=== PATIENT | female | born 1960 | race American Indian/Alaskan Native ===

== ENCOUNTER 2018-04-19 02:28 | Inpatient (IN) | payer OTHER ==
[2018-04-19] MEDS ORDERED: TORADOL IV ONE ×2 (02:43→02:48)
[2018-04-19] MEDS ORDERED: DILAUDID IV ONE ×4 (02:47→06:51)
--- NOTE | 2018-04-19 03:48 | Emergency Department Report ---
<ROSEMARY GRAVES - Last Filed: 04/19/18 03:45> ED Extremity Problem HPI - General Chief complaint: Extremity Injury, Lower Stated complaint: KNEE INJURY Time Seen by Provider: 04/19/18 02:39 Source: EMS Mode of arrival: Stretcher Limitations: No Limitations - History of Present Illness Initial comments: Patient is a 57-year-old female who is presenting status post fall. Patient states that the floor at home in the bathroom had some water on it and she slipped and fell. Patient is a history of being morbidly obese. Patient was unable to get herself off the ground. Patient was having intense pain in the left knee and thigh. Patient states pain is 10 out of 10 in severity. Patient denies any head injury or loss of consciousness. Severity scale (0 -10): 10 - Related Data Allergies Allergy/AdvReac Type Severity Reaction Status Date / Time ciprofloxacin [From Cipro] Allergy Hives Verified 04/19/18 02:46 tramadol Allergy Hives Verified 04/19/18 02:46 ED Review of Systems Comment: All other systems reviewed and negative ED Past Medical Hx - Past Medical History Hx Hypertension: Yes - Surgical History Past Surgical History?: Yes Additional Surgical History: right hip replacement, right knee, left wrist s/p - Social History Smoking Status: Never Smoker Substance Use Type: None ED Physical Exam - General Limitations: No Limitations General appearance: alert, in distress (secondary to pain) - Head Head exam: Present: atraumatic, normocephalic - Eye Eye exam: Present: normal appearance - ENT ENT exam: Present: mucous membranes moist - Neck Neck exam: Present: normal inspection - Respiratory Respiratory exam: Present: normal lung sounds bilaterally. Absent: respiratory distress, wheezes, rales, rhonchi - Cardiovascular Cardiovascular Exam: Present: regular rate, normal rhythm. Absent: systolic murmur, diastolic murmur, rubs, gallop - GI/Abdominal GI/Abdominal exam: Present: soft, normal bowel sounds. Absent: distended, tenderness, guarding, rebound - Extremities Exam Extremities exam: Present: normal inspection, tenderness (the left eye and left knee. Patient's left lower extremity is shortened. She has no tenderness to palpation to the left hip.) - Back Exam Back exam: Present: normal inspection - Neurological Exam Neurological exam: Present: alert, oriented X3 - Psychiatric Psychiatric exam: Present: normal affect, normal mood - Skin Skin exam: Present: warm, dry, intact, normal color. Absent: rash ED Disposition Clinical Impression: Left femoral shaft fracture Qualifiers: Encounter type: initial encounter Fracture type: closed Fracture morphology: oblique Fracture alignment: displaced Qualified Code(s): S72.332A - Displaced oblique fracture of shaft of left femur, initial encounter for closed fracture Disposition: OP ADMIT IP TO THIS HOSP Condition: Stable Referrals: PRIMARY CARE, [Primary Care Provider] - 3-5 Days <CODY CARTWRIGHT - Last Filed: 04/19/18 07:55> ED Review of Systems ROS: Stated complaint: KNEE INJURY Other details as noted in HPI ED Course Vital Signs 04/19/18 04/19/18 04/19/18 02:36 02:37 02:46 Temperature 99.1 F Pulse Rate 91 H 91 H 86 Respiratory 16 11 L 16 Rate Blood Pressure 158/83 158/83 Blood Pressure 158/83 [Left] O2 Sat by Pulse 99 99 Oximetry 04/19/18 04/19/18 04/19/18 03:00 03:16 03:30 Temperature Pulse Rate 95 H 95 H 79 Respiratory 21 21 14 Rate Blood Pressure 158/83 158/83 131/76 Blood Pressure [Left] O2 Sat by Pulse 99 99 100 Oximetry 04/19/18 04/19/18 04/19/18 03:46 04:00 04:16 Temperature Pulse Rate 79 76 78 Respiratory 13 12 11 L Rate Blood Pressure 131/76 143/71 143/71 Blood Pressure [Left] O2 Sat by Pulse 97 95 93 Oximetry 04/19/18 04/19/18 04/19/18 04:30 04:46 05:00 Temperature Pulse Rate 78 79 82 Respiratory 10 L 15 15 Rate Blood Pressure 154/63 154/63 131/63 Blood Pressure [Left] O2 Sat by Pulse 94 98 96 Oximetry 04/19/18 04/19/18 04/19/18 05:16 05:58 06:00 Temperature Pulse Rate 81 77 Respiratory 14 16 13 Rate Blood Pressure 131/63 158/75 Blood Pressure [Left] O2 Sat by Pulse 95 100 Oximetry 04/19/18 07:00 Temperature Pulse Rate 85 Respiratory 12 Rate Blood Pressure 141/64 Blood Pressure [Left] O2 Sat by Pulse 98 Oximetry - Reevaluation(s) Reevaluation #1: Patient was seen and examined. She had a mechanical fall slipping on water. She complains of both her knees hurting but essentially distal femur pain secondary to a displaced oblique fracture. I ordered additional preop workup. On examination the patient is hemodynamically stable. He was given an additional milligram of Dilaudid to facilitate a pelvic x-ray. She's had a previous hip replacement but no additional fracture was seen. The leg appears to be neurovascularly intact. There are pulses present. Both feet are cool. The case was discussed with Dr. Gama who stated that he would likely operate today. The patient will be admitted to the hospitalist service by Dr. Farfan. 04/19/18 07:53 04/19/18 07:54 ED Medical Decision Making - Lab Data Result diagrams: 04/19/18 03:31 04/19/18 03:31 Critical care attestation.: If time is entered above; I have spent that time in minutes in the direct care of this critically ill patient, excluding procedure time. ED Disposition Is pt being admited?: Yes Does the pt Need Aspirin: No Time of Disposition: 07:55
[2018-04-19 03:49] LABS: Basophils % (Auto) 0.6 % (0.0-1.8); Eosinophils # (Auto) 0.1 K/mm3 (0.0-0.4); Eosinophils % (Auto) 0.7 % (0.0-4.3); Hematocrit 35.1 % (30.3-42.9); Hemoglobin 11.9 gm/dl (10.1-14.3); Lymphocytes # (Auto) 1.4 K/mm3 (1.2-5.4); Lymphocytes % (Auto) 16.9 % (13.4-35.0); Mean Corpuscular HGB Conc 34 % (30-34); Mean Corpuscular Volume 91 fl (79-97); Monocytes # (Auto) 0.5 K/mm3 (0.0-0.8); Monocytes % (Auto) 5.8 % (0.0-7.3); Platelet Count 271 K/mm3 (140-440); Red Blood Count 3.87 M/mm3 (3.65-5.03); Red Cell Distribution Width 14.8 % (13.2-15.2)
--- NOTE | 2018-04-19 03:59 | XRay Report ---
FINAL REPORT PROCEDURE: XR FEMUR 1V LT TECHNIQUE: LEFT femur radiographs, AP and lateral views. HISTORY: fall COMPARISON: No prior studies are available for comparison. FINDINGS: Fracture (s) and/or Dislocation(s): There is a oblique fractures in the midshaft of the left femur. T he distal fragment is laterally displaced. There is slight overlap of the fragments by approximately 5 centimeters.. Joint space(s): Normal . Soft tissues: Normal . Bone mineralization: Normal . Foreign bodies: None . IMPRESSION: Displaced oblique fracture through the midshaft of the left femur.
[2018-04-19 04:01] LABS: BUN/Creatinine Ratio 29; Blood Urea Nitrogen 20 mg/dL (7-17); Calcium 8.8 mg/dL (8.4-10.2); Hemolysis Index 8
--- NOTE | 2018-04-19 04:01 | XRay Report ---
FINAL REPORT PROCEDURE: XR KNEE 1-2V LT TECHNIQUE: LEFT knee radiographs, AP and lateral views. CPT 19635 HISTORY: fall COMPARISON: No prior studies are available for comparison. FINDINGS: Fracture (s) and/or Dislocation(s): There is an oblique displaced fracture through the midshaft of th e left femur. The remaining osseous structures appear intact. There is been some osseous remodeling o f the proximal fibula, this appears to be previous trauma.. Alignment: Normal . Joint space(s): Moderate narrowing of the joint spaces. Soft tissues: Normal . Bone mineralization: Normal . Foreign bodies: None . IMPRESSION: There is an oblique displaced fracture through the midshaft of the left femur. Moderate arthritis at the knee..
--- NOTE | 2018-04-19 04:02 | XRay Report ---
FINAL REPORT PROCEDURE: XR KNEE 1-2V RT TECHNIQUE: RIGHT knee radiographs, AP and lateral views. CPT 23854 HISTORY: fall COMPARISON: No prior studies are available for comparison. FINDINGS: Fracture (s) and/or Dislocation(s): No evidence of an acute fracture. There is been previous osseous remodeling of the proximal fibula and tibia, this most likely from previous trauma. There has been pr evious internal fixation at the proximal tibia with 2 screws traversing this region.. Alignment: Normal . Joint space(s): Moderate narrowing of the joint spaces.. Soft tissues: Moderate soft tissue swelling over the anterior knee. Bone mineralization: Normal . Foreign bodies: None . IMPRESSION: No evidence of an acute fracture. Previous trauma to the proximal tibia and fibula. Moderate arthriti s. Moderate soft tissue swelling over the anterior knee.
[2018-04-19] MEDS ORDERED: NACL 0.9% 1000 ML 1,000 ML IV ONE (06:18)
[2018-04-19 07:01] LABS: Alanine Aminotransferase 10 units/L (7-56); Albumin 3.7 g/dL (3.9-5)
[2018-04-19 07:05] LABS: Bilirubin,Direct < 0.2 mg/dL (0-0.2)
--- NOTE | 2018-04-19 07:15 | XRay Report ---
FINAL REPORT EXAM: XR CHEST 1V AP HISTORY: hypertension TECHNIQUE: AP portable view(s) of the chest obtained. PRIORS: None. FINDINGS: No mediastinal shift. Cardiac silhouette is not enlarged. No pneumothorax, effusion, or focal pulmona ry opacity identified. No acute skeletal findings. IMPRESSION: No acute pulmonary finding identified.
--- NOTE | 2018-04-19 07:16 | XRay Report ---
FINAL REPORT EXAM: XR PELVIS 1-2V HISTORY: trauma pain COMPARISONS: None. FINDINGS: Two portable views of the pelvis No displaced fracture identified. Right hip arthroplasty is partially imaged and appears intact. Mild left hip osteoarthropathy. IMPRESSION: No displaced pelvic or proximal femur fracture identified. Consider additional imaging for worsening/ persistent symptoms.
[2018-04-19 07:22] LABS: INR 0.99 (0.87-1.13)
[2018-04-19 07:23] LABS: Partial Thromboplastin Time 23.3 Sec. (24.2-36.6)
[2018-04-19] MEDS ORDERED: ZOFRAN IV PRN (07:56)
[2018-04-19] MEDS ORDERED: NON-FORMULARY (Gabapentin [Neurontin] 600 MG) PO SCH (08:45)
[2018-04-19] MEDS ORDERED: NARCAN 0.4 MG/1 ML IV PRN (08:46)
[2018-04-19] MEDS ORDERED: TYLENOL PO PRN (08:46)
[2018-04-19] MEDS ORDERED: SODIUM CHLORIDE FLUSH SYRINGE 10 ML IV PRN (08:46)
--- NOTE | 2018-04-19 08:50 | History and Physical Report ---
History of Present Illness Date of examination: 04/19/18 Date of admission: 04/19/18 07:57 Chief complaint: 04/19/18 History of present illness: Patient is a 57-year-old female who presents to the ED following a mechanical fall while getting out of the bathroom. The patient reports that she slipped on the water on the bathroom floor and fell. She'll fortunately was unable to get up being morbidly obese and was on this she thickened left knee and thigh pain rated at 10 over 10 in severity with no aggravating or alleviating symptoms. She does have medical history significant for right hip and knee surgeries in the past, left wrist surgery. Total hysterectomy. Hypertension, morbid obesity for which she is on phentermine. 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 Arrival to the ER she has received multiple pain medications with very moderate relief. As of the chest pain nausea vomiting she denies any head trauma. She denies any loss of consciousness during this fall. Past History Past Medical History: arthritis, hypertension, hyperlipidemia, other (Malignant Hyperthermia with previous surgery, ) Past Surgical History: hysterectomy, total hip replacement (right), total knee replacement (right), Other (left wrist surgery with metalic plate, total hysterectomy) Social history: lives with family Family history: no significant family history Medications and Allergies Allergies Allergy/AdvReac Type Severity Reaction Status Date / Time ciprofloxacin [From Cipro] Allergy Hives Verified 04/19/18 02:46 tramadol Allergy Hives Verified 04/19/18 02:46 Home Medications Medication Instructions Recorded Confirmed Last Taken Type Diclofenac Sodium [Diclo Gel] 1 each TP BID 04/19/18 04/19/18 Unknown History Gabapentin [Neurontin] 600 mg PO Q8H 04/19/18 04/19/18 Unknown History Ibuprofen [Motrin] 800 mg PO Q8HR PRN 04/19/18 04/19/18 Unknown History Losartan Potassium 25 mg PO QDAY 04/19/18 04/19/18 Unknown History Phentermine HCl 37.5 mg PO QDAY 04/19/18 04/19/18 Unknown History hydroCHLOROthiazide [HCTZ] 25 mg PO QDAY 04/19/18 04/19/18 Unknown History Active Meds: Active Medications Hydrochlorothiazide (Hctz) 25 mg PO QDAY KENYA Hydromorphone HCl (Dilaudid) 0.5 mg IV Q2H PRN PRN Reason: pain Isosorbide Mononitrate (Imdur) 30 mg PO QDAY [facility] Miscellaneous Medication (Diclofenac Sodium [Diclo Gel]) 1 each TP BID [facility] Miscellaneous Medication (Gabapentin [Neurontin]) 600 mg PO Q8H [facility] Ondansetron HCl (Zofran) 4 mg IV ONCE PRN PRN Reason: nausea Ondansetron HCl (Zofran) 4 mg IV Q8H PRN PRN Reason: Nausea And Vomiting Review of Systems All systems: negative Constitutional: weakness, other (generalized pain) Cardiovascular: no chest pain, no palpitations, no rapid/irregular heart beat, no syncope, no shortness of breath Respiratory: no cough Gastrointestinal: no abdominal pain Musculoskeletal: fractures (left femur) Exam - Physical Exam Narrative exam: VITAL SIGNS: Reviewed. GENERAL: The patient appeared well nourished and normally developed. Vital signs as documented. Otherwise morbidly obese HEAD: No signs of head trauma. EYES: Pupils are equal. Extraocular motions intact. EARS: Hearing grossly intact. MOUTH: Oropharynx is normal. NECK: No adenopathy, no JVD. CHEST: Chest with clear breath sounds bilaterally. No wheezes, rales, or rhonchi. CARDIAC: Regular rate and rhythm. S1 and S2, without murmurs, gallops, or rubs. VASCULAR: No Edema. Peripheral pulses normal and equal in all extremities. ABDOMEN: Soft, without detectable tenderness. No sign of distention. No rebound or guarding, and no masses palpated. Bowel Sounds normal. MUSCULOSKELETAL: Limited range of motion left lower extremity which is shortened and externally rotated. . Extremities without clubbing, cyanosis or edema. NEUROLOGIC EXAM: Alert and oriented x 3. No focal sensory or strength deficits. Speech normal. Follows commands. PSYCHIATRIC: Mood normal. SKIN: No rash or lesions. Except for surgical well-healed incisions right knee right hip left wrist - Constitutional Vitals: Temp Pulse Resp BP Pulse Ox 99.1 F 85 12 141/64 98 04/19/18 02:36 04/19/18 07:00 04/19/18 07:00 04/19/18 07:00 04/19/18 07:00 Results - Labs CBC & Chem 7: 04/19/18 03:31 04/19/18 03:31 Labs: Laboratory Last Values WBC 8.3 K/mm3 (4.5-11.0) 04/19/18 03:31 RBC 3.87 M/mm3 (3.65-5.03) 04/19/18 03:31 Hgb 11.9 gm/dl (10.1-14.3) 04/19/18 03:31 Hct 35.1 % (30.3-42.9) 04/19/18 03:31 MCV 91 fl (79-97) 04/19/18 03:31 MCH 31 pg (28-32) 04/19/18 03:31 MCHC 34 % (30-34) 04/19/18 03:31 RDW 14.8 % (13.2-15.2) 04/19/18 03:31 Plt Count 271 K/mm3 (140-440) 04/19/18 03:31 Lymph % (Auto) 16.9 % (13.4-35.0) 04/19/18 03:31 [place] % (Auto) 5.8 % (0.0-7.3) 04/19/18 03:31 Eos % (Auto) 0.7 % (0.0-4.3) 04/19/18 03:31 Baso % (Auto) 0.6 % (0.0-1.8) 04/19/18 03:31 Lymph # 1.4 K/mm3 (1.2-5.4) 04/19/18 03:31 [place] # 0.5 K/mm3 (0.0-0.8) 04/19/18 03:31 Eos # 0.1 K/mm3 (0.0-0.4) 04/19/18 03:31 Baso # 0.0 K/mm3 (0.0-0.1) 04/19/18 03:31 Seg Neutrophils % 76.0 % (40.0-70.0) H 04/19/18 03:31 Seg Neutrophils # 6.3 K/mm3 (1.8-7.7) 04/19/18 03:31 PT 13.5 Sec. (12.2-14.9) 04/19/18 06:27 INR 0.99 (0.87-1.13) 04/19/18 06:27 APTT 23.3 Sec. (24.2-36.6) L 04/19/18 06:27 Sodium 137 mmol/L (137-145) 04/19/18 03:31 Potassium 3.5 mmol/L (3.6-5.0) L 04/19/18 03:31 Chloride 98.5 mmol/L (98-107) 04/19/18 03:31 Carbon Dioxide 25 mmol/L (22-30) 04/19/18 03:31 Anion Gap 17 mmol/L 04/19/18 03:31 BUN 20 mg/dL (7-17) H 04/19/18 03:31 Creatinine 0.7 mg/dL (0.7-1.2) 04/19/18 03:31 Estimated GFR > 60 ml/min 04/19/18 03:31 BUN/Creatinine Ratio 29 % 04/19/18 03:31 Glucose 113 mg/dL (65-100) H 04/19/18 03:31 Calcium 8.8 mg/dL (8.4-10.2) 04/19/18 03:31 Magnesium 1.80 mg/dL (1.7-2.3) 04/19/18 06:27 Total Bilirubin 0.30 mg/dL (0.1-1.2) 04/19/18 06:27 Direct Bilirubin < 0.2 mg/dL (0-0.2) 04/19/18 06:27 Indirect Bilirubin 0.1 mg/dL 04/19/18 06:27 AST 13 units/L (5-40) 04/19/18 06:27 ALT 10 units/L (7-56) 04/19/18 06:27 Alkaline Phosphatase 100 units/L (35-129) 04/19/18 06:27 Troponin T < 0.010 ng/mL (0.00-0.029) 04/19/18 06:27 NT-Pro-B Natriuret Pep 136.5 pg/mL (0-900) 04/19/18 06:27 Total Protein 7.3 g/dL (6.3-8.2) 04/19/18 06:27 Albumin 3.7 g/dL (3.9-5) L 04/19/18 06:27 Albumin/Globulin Ratio 1.0 % 04/19/18 06:27 Blood Type B POSITIVE 04/19/18 06:27 Antibody Screen Negative 04/19/18 06:27 - Imaging and Cardiology Imaging and Cardiology: Imaging study of lower extremities shows a displaced oblique fracture through the mid shaft of the left femur Assessment and Plan Assessment and plan: Patient is a 57-year-old female who presents to the ED following a mechanical fall while getting out of the bathroom. The patient reports that she slipped on the water on the bathroom floor and fell. She'll fortunately was unable to get up being morbidly obese and was on this she thickened left knee and thigh pain rated at 10 over 10 in severity with no aggravating or alleviating symptoms. She does have medical history significant for right hip and knee surgeries in the past, left wrist surgery. Total hysterectomy. Hypertension, morbid obesity for which she is on phentermine. 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 Arrival to the ER she has received multiple pain medications with very moderate relief. As of the chest pain nausea vomiting she denies any head trauma. She denies any loss of consciousness during this fall. Hip Fracture-displaced oblique fracture to the mid shaft of the left femur Morbid Obesity Chronic Pain syndrome HTN History of postoperatively malignant hypertension PLAN Admit to the Surgical floor Orthopedic consult Continue appropriated HOME MEDS-discussed with the patient about recall on Losartan. she will follow with her PCP for alternative. Pain control PT/OT eval IS for post op ASA post op if ok with Ortho Patient normally ambulates with a cane due to prior surgeries, DVT/GI prophy Plan discussed with patient and children. Advance Directives: Yes Plan of care discussed with patient/family: Yes
[2018-04-19] MEDS ORDERED: DILAUDID ONE ×2 (09:25→13:01)
[2018-04-19] MEDS: DILAUDID IV PRN ×3 (09:30→16:45)
[2018-04-19] MEDS ORDERED: PHENTERMINE HCL 37.5 MG PO SCH (10:00)
[2018-04-19] MEDS ORDERED: DICLOFENAC SODIUM TP SCH (10:00)
[2018-04-19] MEDS ORDERED: SUBLIMAZE IV ONE (10:09)
[2018-04-19] MEDS ORDERED: fentaNYL DRIP Premix 2,000 MCG/100 ML BAG IV ONE (10:13)
[2018-04-19] MEDS: SODIUM CHLORIDE FLUSH SYRINGE 10 ML IV SCH ×2 (10:46→22:56)
[2018-04-19] MEDS ORDERED: ZOFRAN ONE (11:29)
[2018-04-19] MEDS: ZOFRAN IV PRN (11:30)
[2018-04-19] MEDS ORDERED: KETAMINE HCL IV ONE ×2 (13:25→14:31)
[2018-04-19] MEDS: IMDUR PO SCH ×2 (14:30→14:37)
[2018-04-19] MEDS: HCTZ PO SCH ×2 (14:30→14:36)
[2018-04-19] MEDS: NEURONTIN PO SCH ×2 (14:32→22:55)
--- NOTE | 2018-04-19 15:37 | Event Note ---
Date: 04/19/18 Requested to provide IV sedation by Dr. Gama orthopedist. Indication splinting of femur fracture Procedure Patient was placed on 2 L of supplemental O2. She was placed on a CO2 monitor. This ranged from 45-48. She remained awake and conscious. She had received opiates prior to the procedure. Her pain was moderately controlled. She tells me that she does snore but doesn't wear CPAP. The patient's Mallampati score was about 3. He had been nothing by mouth for greater than 8 hours. Patient was given 25 mg of IV ketamine. She remained well oxygenated. Her highest CO2 was transiently 50 but returned quickly to the low 40s. A posterior splint was placed by Dr. Gama. Patient recovered well from IV sedation.
--- NOTE | 2018-04-19 18:29 | Consultation ---
History of Present Illness - [facility] Consult date: 04/19/18 Consult reason: fracture History of present illness: 57-year-old female who presents to the ED following a mechanical fall while getting out of the bathroom. The patient reports that she slipped on the water on the bathroom floor and fell. She' was unable to get up being morbidly obese and was on this she thickened left knee and thigh pain rated at 10 over 10 in severity with no aggravating or alleviating symptoms. She does have medical history significant for right hip and knee surgeries in the past, left wrist surgery. Past History Past Medical History: arthritis, hypertension, hyperlipidemia, other (Malignant Hyperthermia with previous surgery, ) Past Surgical History: hysterectomy, total hip replacement (right), total knee replacement (right), Other (left wrist surgery with metalic plate, total hysterectomy) Social history: lives with family Family history: no significant family history Medications and Allergies Allergies Allergy/AdvReac Type Severity Reaction Status Date / Time ciprofloxacin [From Cipro] Allergy Hives Verified 04/19/18 02:46 tramadol Allergy Hives Verified 04/19/18 02:46 Home Medications Medication Instructions Recorded Confirmed Last Taken Type Diclofenac Sodium [Diclo Gel] 1 each TP BID 04/19/18 04/19/18 Unknown History Gabapentin [Neurontin] 600 mg PO Q8H 04/19/18 04/19/18 Unknown History Ibuprofen [Motrin] 800 mg PO Q8HR PRN 04/19/18 04/19/18 Unknown History Losartan Potassium 25 mg PO QDAY 04/19/18 04/19/18 Unknown History Phentermine HCl 37.5 mg PO QDAY 04/19/18 04/19/18 Unknown History hydroCHLOROthiazide [HCTZ] 25 mg PO QDAY 04/19/18 04/19/18 Unknown History Active Meds: Active Medications Acetaminophen (Tylenol) 650 mg PO Q4H PRN PRN Reason: Pain MILD(1-3)/Fever >100.5/ROONEY Aspirin (Aspirin) 325 mg PO QDAY KENYA Gabapentin (Neurontin) 600 mg PO Q8HR [facility] Last Admin: 04/19/18 14:32 Dose: 600 mg Documented by: Hydrochlorothiazide (Hctz) 25 mg PO QDAY KENYA Last Admin: 04/19/18 14:36 Dose: 25 mg Documented by: Hydromorphone HCl (Dilaudid) 0.5 mg IV Q2H PRN PRN Reason: pain Last Admin: 04/19/18 13:03 Dose: 0.5 mg Documented by: Hydromorphone HCl (Dilaudid) 2 mg IV Q4H PRN PRN Reason: Pain , Severe (7-10) Last Admin: 04/19/18 16:45 Dose: 2 mg Documented by: Isosorbide Mononitrate (Imdur) 30 mg PO QDAY [facility] Last Admin: 04/19/18 14:37 Dose: 30 mg Documented by: Miscellaneous Medication (Diclofenac Sodium [Diclo Gel]) 1 each TP BID [facility] Last Admin: 04/19/18 10:46 Dose: Not Given Documented by: Miscellaneous Medication (Phentermine Hcl [Phentermine Hcl]) 37.5 mg PO QDAY [facility] Last Admin: 04/19/18 14:30 Dose: Not Given Documented by: Naloxone HCl (Narcan 0.4 Mg/1 Ml) 0.1 mg IV Q2MIN PRN PRN Reason: Res Rate </= 8 or 02 SAT < 92% Ondansetron HCl (Zofran) 4 mg IV Q8H PRN PRN Reason: Nausea And Vomiting Last Admin: 04/19/18 11:30 Dose: 4 mg Documented by: Sodium Chloride (Sodium Chloride Flush Syringe 10 Ml) 10 ml IV PRN PRN PRN Reason: LINE FLUSH Sodium Chloride (Sodium Chloride Flush Syringe 10 Ml) 10 ml IV BID [facility] Last Admin: 04/19/18 10:46 Dose: 10 ml Documented by: Physical Examination - Physical exam Narrative exam: On physical examination the left lower extremity was examined patient was noted to have some deformity with gross motion on palpation in the distal portion of the thigh skin was intact and compartments were soft distal neurovascular status was intact Plain x-rays from the ED were reviewed by me and show a spiral fracture of the distal third portion of the left femur with some displacement of the fracture fragments Eyes: PERRL ENT: Positive: clear oral mucosa Respiratory effort: normal Respiratory: bilateral: CTA Rhythm: regular Heart Sounds: Positive: S1 & S2 General gastrointestinal: Positive: soft, non-tender, non-distended, normal bowel sounds Integumentary: clear, warm, dry Neurologic: Positive: CNII-XII intact, moves all extremities, gait normal. Negative: focal deficits - Cervical Spine Neck pain: none Tenderness with palpation: none Full ROM: yes ROM: flexion: normal ROM: extension: normal ROM: rotation right: normal ROM: rotation left: normal ROM: lateral flexion right: normal ROM: lateral flexion left: normal - Lumbar Spine Back pain: none Tenderness with palpation: none Appearance: normal Full ROM: yes ROM: flexion: normal ROM: extension: normal ROM: rotation right: normal ROM: rotation left: normal ROM: lateral flexion right: normal ROM: lateral flexion left: normal Assessment and Plan Displaced left distal femur fracture Recommendations We'll place in a posterior mold SPLINT patient will be admitted for a closed reduction and insertion of intramedullary nail left femur
[2018-04-20] MEDS: DILAUDID IV PRN ×3 (00:30→18:40)
[2018-04-20] MEDS: NEURONTIN PO SCH (06:00)
[2018-04-20 07:16] LABS: Basophils % (Auto) 0.5 % (0.0-1.8); Eosinophils # (Auto) 0.1 K/mm3 (0.0-0.4); Eosinophils % (Auto) 1.2 % (0.0-4.3); Hematocrit 34.5 % (30.3-42.9); Hemoglobin 11.3 gm/dl (10.1-14.3); Lymphocytes # (Auto) 1.4 K/mm3 (1.2-5.4); Lymphocytes % (Auto) 17.3 % (13.4-35.0); Mean Corpuscular HGB Conc 33 % (30-34); Mean Corpuscular Volume 92 fl (79-97); Monocytes # (Auto) 0.6 K/mm3 (0.0-0.8); Monocytes % (Auto) 7.8 % (0.0-7.3); Platelet Count 264 K/mm3 (140-440); Red Blood Count 3.74 M/mm3 (3.65-5.03); Red Cell Distribution Width 15.4 % (13.2-15.2)
[2018-04-20 07:30] LABS: Calcium 8.2 mg/dL (8.4-10.2)
--- NOTE | 2018-04-20 10:16 | Anesthesia Consultation ---
Anesthesia Consult and Med Hx Date of service: 04/20/18 - Airway Anesthetic Teeth Evaluation: Poor (some missing, chipped teeth, #25 is loose) ROM Head & Neck: Adequate Mental/Hyoid Distance: Adequate Mallampati Class: Class III Intubation Access Assessment: Possibly Difficult - Pre-Operative Health Status ASA Pre-Surgery Classification: ASA3 Proposed Anesthetic Plan: General, Spinal - Pulmonary Hx Asthma: No COPD: No Hx Pneumonia: No - Cardiovascular System Hx Hypertension: Yes - Central Nervous System Hx Neuromuscular Disorder: Yes (suspected MH with previous surgery) - Endocrine Hx End Stage Renal Disease: No - Other Systems Hx Obesity: Yes (BMI 58.0) - Additional Comments Anesthesia Medical History Comments: s/p right hip, right knee replacement
--- NOTE | 2018-04-20 10:21 | Anesthesia Day of Surgery ---
Anesthesia Day of Surgery - Day of Surgery Patient Examined: Yes Patient H&P Reviewed: Yes Patient is NPO: Yes
[2018-04-20] MEDS ORDERED: NACL 0.9% 1000 ML 1,000 ML IV ONE (11:03)
--- NOTE | 2018-04-20 11:04 | Progress Note ---
Assessment and Plan Assessment and plan: Patient is a 57-year-old female who presents to the ED following a mechanical fall while getting out of the bathroom. The patient reports that she slipped on the water on the bathroom floor and fell. She'll fortunately was unable to get up being morbidly obese and was on this she thickened left knee and thigh pain rated at 10 over 10 in severity with no aggravating or alleviating symptoms. She does have medical history significant for right hip and knee surgeries in the past, left wrist surgery. Total hysterectomy. Hypertension, morbid obesity for which she is on phentermine. 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 Arrival to the ER she has received multiple pain medications with very moderate relief. As of the chest pain nausea vomiting she denies any head trauma. She denies any loss of consciousness during this fall. 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 she will follow with her PCP for alternative. Pain control PT/OT eval IS for post op ASA post op if ok with Ortho Patient normally ambulates with a cane due to prior surgeries, DVT/GI prophy Plan discussed with patient and children. History Interval history: Patient seen and examined, no new complaints. Hospitalist Physical - Physical exam Narrative exam: VITAL SIGNS: Reviewed. GENERAL: The patient appeared well nourished and normally developed. Vital signs as documented. Otherwise morbidly obese HEAD: No signs of head trauma. EYES: Pupils are equal. Extraocular motions intact. EARS: Hearing grossly intact. MOUTH: Oropharynx is normal. NECK: No adenopathy, no JVD. CHEST: Chest with clear breath sounds bilaterally. No wheezes, rales, or rhonchi. CARDIAC: Regular rate and rhythm. S1 and S2, without murmurs, gallops, or rubs. VASCULAR: No Edema. Peripheral pulses normal and equal in all extremities. ABDOMEN: Soft, without detectable tenderness. No sign of distention. No rebound or guarding, and no masses palpated. Bowel Sounds normal. MUSCULOSKELETAL: Limited range of motion left lower extremity which is shortened and externally rotated. . Extremities without clubbing, cyanosis or edema. NEUROLOGIC EXAM: Alert and oriented x 3. No focal sensory or strength deficits. Speech normal. Follows commands. PSYCHIATRIC: Mood normal. SKIN: No rash or lesions. Except for surgical well-healed incisions right knee right hip left wrist - Constitutional Vitals: Temp Pulse Resp BP Pulse Ox 98.5 F 104 H 12 129/54 99 04/20/18 09:00 04/20/18 09:00 04/20/18 09:00 04/20/18 09:00 04/20/18 09:00 Results - Labs CBC & Chem 7: 04/21/18 06:45 04/21/18 06:45 Labs: Laboratory Last Values WBC 8.1 K/mm3 (4.5-11.0) 04/20/18 06:36 RBC 3.74 M/mm3 (3.65-5.03) 04/20/18 06:36 Hgb 11.3 gm/dl (10.1-14.3) 04/20/18 06:36 Hct 34.5 % (30.3-42.9) 04/20/18 06:36 MCV 92 fl (79-97) 04/20/18 06:36 MCH 30 pg (28-32) 04/20/18 06:36 MCHC 33 % (30-34) 04/20/18 06:36 RDW 15.4 % (13.2-15.2) H 04/20/18 06:36 Plt Count 264 K/mm3 (140-440) 04/20/18 06:36 Lymph % (Auto) 17.3 % (13.4-35.0) 04/20/18 06:36 Mcdonough % (Auto) 7.8 % (0.0-7.3) H 04/20/18 06:36 Eos % (Auto) 1.2 % (0.0-4.3) 04/20/18 06:36 Baso % (Auto) 0.5 % (0.0-1.8) 04/20/18 06:36 Lymph # 1.4 K/mm3 (1.2-5.4) 04/20/18 06:36 Mcdonough # 0.6 K/mm3 (0.0-0.8) 04/20/18 06:36 Eos # 0.1 K/mm3 (0.0-0.4) 04/20/18 06:36 Baso # 0.0 K/mm3 (0.0-0.1) 04/20/18 06:36 Seg Neutrophils % 73.2 % (40.0-70.0) H 04/20/18 06:36 Seg Neutrophils # 5.9 K/mm3 (1.8-7.7) 04/20/18 06:36 PT 13.5 Sec. (12.2-14.9) 04/19/18 06:27 INR 0.99 (0.87-1.13) 04/19/18 06:27 APTT 23.3 Sec. (24.2-36.6) L 04/19/18 06:27 Sodium 136 mmol/L (137-145) L 04/20/18 06:36 Potassium 4.4 mmol/L (3.6-5.0) D 04/20/18 06:36 Chloride 97.3 mmol/L (98-107) L 04/20/18 06:36 Carbon Dioxide 24 mmol/L (22-30) 04/20/18 06:36 Anion Gap 19 mmol/L 04/20/18 06:36 BUN 29 mg/dL (7-17) H 04/20/18 06:36 Creatinine 2.0 mg/dL (0.7-1.2) H D 04/20/18 06:36 Estimated GFR 31 ml/min 04/20/18 06:36 BUN/Creatinine Ratio 15 % 04/20/18 06:36 Glucose 124 mg/dL (65-100) H 04/20/18 06:36 Calcium 8.2 mg/dL (8.4-10.2) L 04/20/18 06:36 Magnesium 1.80 mg/dL (1.7-2.3) 04/19/18 06:27 Total Bilirubin 0.30 mg/dL (0.1-1.2) 04/19/18 06:27 Direct Bilirubin < 0.2 mg/dL (0-0.2) 04/19/18 06:27 Indirect Bilirubin 0.1 mg/dL 04/19/18 06:27 AST 13 units/L (5-40) 04/19/18 06:27 ALT 10 units/L (7-56) 04/19/18 06:27 Alkaline Phosphatase 100 units/L (35-129) 04/19/18 06:27 Troponin T < 0.010 ng/mL (0.00-0.029) 04/19/18 06:27 NT-Pro-B Natriuret Pep 136.5 pg/mL (0-900) 04/19/18 06:27 Total Protein 7.3 g/dL (6.3-8.2) 04/19/18 06:27 Albumin 3.7 g/dL (3.9-5) L 04/19/18 06:27 Albumin/Globulin Ratio 1.0 % 04/19/18 06:27 Blood Type B POSITIVE 04/19/18 06:27 Antibody Screen Negative 04/19/18 06:27
[2018-04-20] MEDS ORDERED: DIPRIVAN 10 MG/ML IV ONE ×6 (12:01→16:57)
[2018-04-20] MEDS ORDERED: SUBLIMAZE ONE (12:01)
[2018-04-20] MEDS ORDERED: KETALAR ONE (12:15)
[2018-04-20] MEDS ORDERED: XYLOCAINE MPF 2% ONE (12:16)
[2018-04-20] MEDS ORDERED: NACL 0.9% 1000 ML 1,000 ML ONE (13:54)
[2018-04-20] MEDS: NACL 0.9% 1000 ML 1,000 ML IV SCH ×2 (14:00→21:34)
[2018-04-20] MEDS ORDERED: DEMEROL IV PRN (14:04)
[2018-04-20] MEDS ORDERED: ZOFRAN IV PRN (14:04)
[2018-04-20 14:36] LABS: Blood Urea Nitrogen 24 mg/dL (7-17)
[2018-04-20] MEDS ORDERED: VERSED ONE (14:47)
[2018-04-20] MEDS ORDERED: LACTATED RINGERS 1,000 ML IV SCH (15:00)
[2018-04-20] MEDS ORDERED: ANCEF/STERILE WATER 2 GM/20 ML IV NR (15:00)
[2018-04-20] MEDS ORDERED: DEXMEDETOMIDINE IV ONE (15:17)
[2018-04-20] MEDS ORDERED: NACL 0.9% 100 ML ONE (15:17)
[2018-04-20] MEDS ORDERED: AMBIEN PO PRN (17:09)
[2018-04-20] MEDS ORDERED: MILK OF MAGNESIA PO PRN (17:09)
--- NOTE | 2018-04-20 17:22 | Procedure Note ---
Date of procedure: 04/20/18 Pre-op diagnosis: Displaced fracture of left distal femur Post-op diagnosis: same Procedure: Closed reduction and insertion of intramedullary nail left distal femur Procedure The patient was brought to the OR on the hospital. After multiple attempts at spinal anesthesia the patient was then placed onto the OR table supine position following induction by anesthesia with IV sedation the patient's left lower extremity was prepped and draped in the usual sterile manner. A timeout procedure was done to identify the patient and the correct operative site. An incision was made over the patellar tendon this was taken down sharply through skin and subcutaneous using digital palpation the intercondylar notch(palpated next a threaded guidewire was inserted into the distal femur and under C-arm visualization crossed over the fracture site into the proximal femoral canal The alignment was visualized again on C-arm following this the medullary canal was reamed to a 12 mm diameter this was then followed by insertion of a 11 x 340 mm retrograde IM nail again the nail was inserted in a retrograde fashion following this to distal locking screws were inserted using a targeting device following this a proximal locking screw was inserted going from anterior to posterior again C-arm x-rays were taken showing good reduction of the fracture and placement of all hardware following this the wound was copiously irrigated and was closed in a standard routine fashion. No complications patient was taken to postanesthesia recovery in a stable condition Anesthesia: MAC Surgeon: JOSE PEDERSON (Phylicia Cueva, 1st assistant credit manager) Estimated blood loss: 50-100ml Pathology: none Condition: stable Disposition: PACU
[2018-04-20] MEDS ORDERED: SODIUM CHLORIDE FLUSH SYRINGE 10 ML IV NR (18:00)
[2018-04-20] MEDS: SODIUM CHLORIDE FLUSH SYRINGE 10 ML IV SCH ×2 (19:32→23:24)
[2018-04-20] MEDS: HCTZ PO SCH (19:39)
[2018-04-20] MEDS: TORADOL IV PRN (21:07)
[2018-04-20] MEDS: ASPIRIN PO SCH (21:07)
[2018-04-20] MEDS: IMDUR PO SCH (21:08)
[2018-04-20] MEDS: ANCEF/NS 1 GM/50 ML 1 GM/50 ML BAG IV SCH (23:24)
[2018-04-21] MEDS: DILAUDID IV PRN ×4 (00:46→17:45)
[2018-04-21] MEDS: ANCEF/NS 1 GM/50 ML 1 GM/50 ML BAG IV SCH (06:28)
[2018-04-21] MEDS: TORADOL IV PRN ×2 (06:41→16:25)
[2018-04-21 07:02] LABS: Hematocrit 27.4 % (30.3-42.9); Hemoglobin 9.2 gm/dl (10.1-14.3); Mean Corpuscular HGB Conc 34 % (30-34); Mean Corpuscular Volume 91 fl (79-97); Platelet Count 212 K/mm3 (140-440); Red Blood Count 3.02 M/mm3 (3.65-5.03); Red Cell Distribution Width 14.4 % (13.2-15.2)
[2018-04-21 07:24] LABS: BUN/Creatinine Ratio 23; Blood Urea Nitrogen 14 mg/dL (7-17); Calcium 7.8 mg/dL (8.4-10.2); Hemolysis Index 3
--- NOTE | 2018-04-21 07:36 | XRay Report ---
LEFT FEMUR, 2 VIEWS History: Left femur fracture, IM distal femur nailing. Findings: Fluoroscopy was provided by radiology during internal fixation of a distal left femur fracture. 5 fluoroscopic images were saved. The spiral fracture of the distal left femur has been internally fixated with an intramedullary delmy since 04/19/18. Alignment is anatomic. No soft tissue abnormality is detected. Impression: Internal fixation of a distal left femur fracture.
--- NOTE | 2018-04-21 09:33 | Progress Note ---
Assessment and Plan Assessment and plan: Patient is a 57-year-old female who presents to the ED following a mechanical fall while getting out of the bathroom. The patient reports that she slipped on the water on the bathroom floor and fell. She'll fortunately was unable to get up being morbidly obese and was on this she thickened left knee and thigh pain rated at 10 over 10 in severity with no aggravating or alleviating symptoms. She does have medical history significant for right hip and knee surgeries in the past, left wrist surgery. Total hysterectomy. Hypertension, morbid obesity for which she is on phentermine. 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 Arrival to the ER she has received multiple pain medications with very moderate relief. As of the chest pain nausea vomiting she denies any head trauma. She denies any loss of consciousness during this fall. 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 Continue appropriated HOME MEDS-discussed with the patient about recall on Losartan. she will follow with her PCP for alternative. Pain control PT/OT eval IS for post op ASA post op if ok with Ortho Patient normally ambulates with a cane due to prior surgeries, DVT/GI prophy Plan discussed with patient and children. History Interval history: Patient seen and examined, Ist day of physical therapy, Challenging but she got through it. Hospitalist Physical - Physical exam Narrative exam: VITAL SIGNS: Reviewed. GENERAL: The patient appeared well nourished and normally developed. Vital signs as documented. Otherwise morbidly obese HEAD: No signs of head trauma. EYES: Pupils are equal. Extraocular motions intact. EARS: Hearing grossly intact. MOUTH: Oropharynx is normal. NECK: No adenopathy, no JVD. CHEST: Chest with clear breath sounds bilaterally. No wheezes, rales, or rhonchi. CARDIAC: Regular rate and rhythm. S1 and S2, without murmurs, gallops, or rubs. VASCULAR: No Edema. Peripheral pulses normal and equal in all extremities. ABDOMEN: Soft, without detectable tenderness. No sign of distention. No aj ound or guarding, and no masses palpated. Bowel Sounds normal. MUSCULOSKELETAL: Limited range of motion left lower ext. Surgical site clean and dry. . Extremities without clubbing, cyanosis or edema. NEUROLOGIC EXAM: Alert and oriented x 3. No focal sensory or strength deficits. Speech normal. Follows commands. PSYCHIATRIC: Mood normal. SKIN: No rash or lesions. Except for surgical well-healed incisions right knee right hip left wrist - Constitutional Vitals: Temp Pulse Resp BP Pulse Ox 99.3 F 99 H 10 L 143/65 99 04/21/18 06:31 04/21/18 06:31 04/21/18 06:31 04/21/18 06:31 04/21/18 06:31 Results - Labs CBC & Chem 7: 04/21/18 06:45 04/21/18 06:45 Labs: Laboratory Last Values WBC 7.4 K/mm3 (4.5-11.0) 04/21/18 06:45 RBC 3.02 M/mm3 (3.65-5.03) L 04/21/18 06:45 Hgb 9.2 gm/dl (10.1-14.3) L 04/21/18 06:45 Hct 27.4 % (30.3-42.9) L D 04/21/18 06:45 MCV 91 fl (79-97) 04/21/18 06:45 MCH 31 pg (28-32) 04/21/18 06:45 MCHC 34 % (30-34) 04/21/18 06:45 RDW 14.4 % (13.2-15.2) 04/21/18 06:45 Plt Count 212 K/mm3 (140-440) 04/21/18 06:45 Lymph % (Auto) 17.3 % (13.4-35.0) 04/20/18 06:36 Hernando % (Auto) 7.8 % (0.0-7.3) H 04/20/18 06:36 Eos % (Auto) 1.2 % (0.0-4.3) 04/20/18 06:36 Baso % (Auto) 0.5 % (0.0-1.8) 04/20/18 06:36 Lymph # 1.4 K/mm3 (1.2-5.4) 04/20/18 06:36 Hernando # 0.6 K/mm3 (0.0-0.8) 04/20/18 06:36 Eos # 0.1 K/mm3 (0.0-0.4) 04/20/18 06:36 Baso # 0.0 K/mm3 (0.0-0.1) 04/20/18 06:36 Seg Neutrophils % 73.2 % (40.0-70.0) H 04/20/18 06:36 Seg Neutrophils # 5.9 K/mm3 (1.8-7.7) 04/20/18 06:36 PT 13.5 Sec. (12.2-14.9) 04/19/18 06:27 INR 0.99 (0.87-1.13) 04/19/18 06:27 APTT 23.3 Sec. (24.2-36.6) L 04/19/18 06:27 Sodium 137 mmol/L (137-145) 04/21/18 06:45 Potassium 3.9 mmol/L (3.6-5.0) 04/21/18 06:45 Chloride 100.8 mmol/L (98-107) 04/21/18 06:45 Carbon Dioxide 27 mmol/L (22-30) 04/21/18 06:45 Anion Gap 13 mmol/L 04/21/18 06:45 BUN 14 mg/dL (7-17) 04/21/18 06:45 Creatinine 0.6 mg/dL (0.7-1.2) L 04/21/18 06:45 Estimated GFR > 60 ml/min 04/21/18 06:45 BUN/Creatinine Ratio 23 % 04/21/18 06:45 Glucose 115 mg/dL (65-100) H 04/21/18 06:45 Calcium 7.8 mg/dL (8.4-10.2) L 04/21/18 06:45 Magnesium 1.80 mg/dL (1.7-2.3) 04/19/18 06:27 Total Bilirubin 0.30 mg/dL (0.1-1.2) 04/19/18 06:27 Direct Bilirubin < 0.2 mg/dL (0-0.2) 04/19/18 06:27 Indirect Bilirubin 0.1 mg/dL 04/19/18 06:27 AST 13 units/L (5-40) 04/19/18 06:27 ALT 10 units/L (7-56) 04/19/18 06:27 Alkaline Phosphatase 100 units/L (35-129) 04/19/18 06:27 Troponin T < 0.010 ng/mL (0.00-0.029) 04/19/18 06:27 NT-Pro-B Natriuret Pep 136.5 pg/mL (0-900) 04/19/18 06:27 Total Protein 7.3 g/dL (6.3-8.2) 04/19/18 06:27 Albumin 3.7 g/dL (3.9-5) L 04/19/18 06:27 Albumin/Globulin Ratio 1.0 % 04/19/18 06:27 Blood Type B POSITIVE 04/19/18 06:27 Antibody Screen Negative 04/19/18 06:27
--- NOTE | 2018-04-21 10:00 | Progress Note ---
Assessment and Plan Status post closed reduction and insertion of medullary nail left distal femur Plan begin physical therapy for gait training and range of motion exercises Subjective Date of service: 04/21/18 Interval history: Complaining of some incisional and distal thigh pain Objective Vital signs: Vital Signs - 12hr 04/20/18 04/21/18 22:00 06:31 Temperature 99.3 F Pulse Rate 99 H Respiratory 12 10 L Rate Blood Pressure 143/65 O2 Sat by Pulse 99 Oximetry Narrative Exam: Left thigh - postoperative dressings intact and compartments soft, distal neurovascular status is intact - Labs CBC & BMP: 04/21/18 06:45 04/21/18 06:45 Labs: Abnormal lab results 04/20/18 04/21/18 04/21/18 Range/Units 14:20 06:45 06:45 RBC 3.02 L (3.65-5.03) M/mm3 Hgb 9.2 L (10.1-14.3) gm/dl Hct 27.4 L D (30.3-42.9) % BUN 24 H (7-17) mg/dL Creatinine 0.6 L (0.7-1.2) mg/dL Glucose 115 H (65-100) mg/dL Calcium 7.8 L (8.4-10.2) mg/dL
[2018-04-21] MEDS: ASPIRIN PO SCH (10:06)
[2018-04-21] MEDS: IMDUR PO SCH (10:06)
[2018-04-21] MEDS: SODIUM CHLORIDE FLUSH SYRINGE 10 ML IV SCH ×2 (10:10→21:12)
[2018-04-21] MEDS: LOVENOX SUB-Q SCH (10:11)
[2018-04-21] MEDS ORDERED: VASELINE LIP THERAPY TP ONE (11:11)
[2018-04-21] MEDS: ZOFRAN IV PRN (11:28)
[2018-04-21] MEDS: NACL 0.9% 1000 ML 1,000 ML IV SCH (13:41)
[2018-04-21] MEDS ORDERED: VASELINE LIP THERAPY TP PRN (18:42)
[2018-04-22] MEDS: TORADOL IV PRN ×4 (01:13→23:07)
[2018-04-22] MEDS: NACL 0.9% 1000 ML 1,000 ML IV SCH (01:13)
[2018-04-22] MEDS: DILAUDID IV PRN ×2 (06:58→11:51)
[2018-04-22 09:40] LABS: Hematocrit 25.9 % (30.3-42.9); Hemoglobin 8.9 gm/dl (10.1-14.3)
[2018-04-22] MEDS: IMDUR PO SCH (09:44)
[2018-04-22] MEDS: LOVENOX SUB-Q SCH (09:44)
[2018-04-22] MEDS: ASPIRIN PO SCH (09:44)
[2018-04-22] MEDS: SODIUM CHLORIDE FLUSH SYRINGE 10 ML IV SCH ×2 (11:57→23:09)
--- NOTE | 2018-04-22 14:21 | Progress Note ---
Assessment and Plan Assessment and plan: Patient is a 57-year-old female who presents to the ED following a mechanical fall while getting out of the bathroom. The patient reports that she slipped on the water on the bathroom floor and fell. She'll fortunately was unable to get up being morbidly obese and was on this she thickened left knee and thigh pain rated at 10 over 10 in severity with no aggravating or alleviating symptoms. She does have medical history significant for right hip and knee surgeries in the past, left wrist surgery. Total hysterectomy. Hypertension, morbid obesity for which she is on phentermine. 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 Arrival to the ER she has received multiple pain medications with very moderate relief. As of the chest pain nausea vomiting she denies any head trauma. She denies any loss of consciousness during this fall. 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 Continue appropriated HOME MEDS-discussed with the patient about recall on Losartan. she will follow with her PCP for alternative. Pain control PT/OT eval IS for post op ASA post op if ok with Ortho Patient normally ambulates with a cane due to prior surgeries, DVT/GI prophy Plan discussed with patient and children. Anticipate discharge to inpatient rehab in am History Interval history: Patient seen and examined, No new complaints. Having physical therapy today. Hospitalist Physical - Physical exam Narrative exam: VITAL SIGNS: Reviewed. GENERAL: The patient appeared well nourished and normally developed. Vital signs as documented. Otherwise morbidly obese HEAD: No signs of head trauma. EYES: Pupils are equal. Extraocular motions intact. EARS: Hearing grossly intact. MOUTH: Oropharynx is normal. NECK: No adenopathy, no JVD. CHEST: Chest with clear breath sounds bilaterally. No wheezes, rales, or rhonchi. CARDIAC: Regular rate and rhythm. S1 and S2, without murmurs, gallops, or rubs. VASCULAR: No Edema. Peripheral pulses normal and equal in all extremities. ABDOMEN: Soft, without detectable tenderness. No sign of distention. No rebound or guarding, and no masses palpated. Bowel Sounds normal. MUSCULOSKELETAL: Limited range of motion left lower ext. Surgical site clean and dry. . Extremities without clubbing, cyanosis or edema. NEUROLOGIC EXAM: Alert and oriented x 3. No focal sensory or strength deficits. Speech normal. Follows commands. PSYCHIATRIC: Mood normal. SKIN: No rash or lesions. Except for surgical well-healed incisions right knee right hip left wrist - Constitutional Vitals: Temp Pulse Resp BP Pulse Ox 98.1 F 89 18 132/67 94 04/22/18 11:10 04/22/18 11:10 04/22/18 11:10 04/22/18 11:10 04/22/18 11:10 Results - Labs CBC & Chem 7: 04/22/18 08:59 04/21/18 06:45 Labs: Laboratory Last Values WBC 7.4 K/mm3 (4.5-11.0) 04/21/18 06:45 RBC 3.02 M/mm3 (3.65-5.03) L 04/21/18 06:45 Hgb 8.9 gm/dl (10.1-14.3) L 04/22/18 08:59 Hct 25.9 % (30.3-42.9) L 04/22/18 08:59 MCV 91 fl (79-97) 04/21/18 06:45 MCH 31 pg (28-32) 04/21/18 06:45 MCHC 34 % (30-34) 04/21/18 06:45 RDW 14.4 % (13.2-15.2) 04/21/18 06:45 Plt Count 212 K/mm3 (140-440) 04/21/18 06:45 Lymph % (Auto) 17.3 % (13.4-35.0) 04/20/18 06:36 Holmes % (Auto) 7.8 % (0.0-7.3) H 04/20/18 06:36 Eos % (Auto) 1.2 % (0.0-4.3) 04/20/18 06:36 Baso % (Auto) 0.5 % (0.0-1.8) 04/20/18 06:36 Lymph # 1.4 K/mm3 (1.2-5.4) 04/20/18 06:36 Holmes # 0.6 K/mm3 (0.0-0.8) 04/20/18 06:36 Eos # 0.1 K/mm3 (0.0-0.4) 04/20/18 06:36 Baso # 0.0 K/mm3 (0.0-0.1) 04/20/18 06:36 Seg Neutrophils % 73.2 % (40.0-70.0) H 04/20/18 06:36 Seg Neutrophils # 5.9 K/mm3 (1.8-7.7) 04/20/18 06:36 PT 13.5 Sec. (12.2-14.9) 04/19/18 06:27 INR 0.99 (0.87-1.13) 04/19/18 06:27 APTT 23.3 Sec. (24.2-36.6) L 04/19/18 06:27 Sodium 137 mmol/L (137-145) 04/21/18 06:45 Potassium 3.9 mmol/L (3.6-5.0) 04/21/18 06:45 Chloride 100.8 mmol/L (98-107) 04/21/18 06:45 Carbon Dioxide 27 mmol/L (22-30) 04/21/18 06:45 Anion Gap 13 mmol/L 04/21/18 06:45 BUN 14 mg/dL (7-17) 04/21/18 06:45 Creatinine 0.6 mg/dL (0.7-1.2) L 04/21/18 06:45 Estimated GFR > 60 ml/min 04/21/18 06:45 BUN/Creatinine Ratio 23 % 04/21/18 06:45 Glucose 115 mg/dL (65-100) H 04/21/18 06:45 Calcium 7.8 mg/dL (8.4-10.2) L 04/21/18 06:45 Magnesium 1.80 mg/dL (1.7-2.3) 04/19/18 06:27 Total Bilirubin 0.30 mg/dL (0.1-1.2) 04/19/18 06:27 Direct Bilirubin < 0.2 mg/dL (0-0.2) 04/19/18 06:27 Indirect Bilirubin 0.1 mg/dL 04/19/18 06:27 AST 13 units/L (5-40) 04/19/18 06:27 ALT 10 units/L (7-56) 04/19/18 06:27 Alkaline Phosphatase 100 units/L (35-129) 04/19/18 06:27 Troponin T < 0.010 ng/mL (0.00-0.029) 04/19/18 06:27 NT-Pro-B Natriuret Pep 136.5 pg/mL (0-900) 04/19/18 06:27 Total Protein 7.3 g/dL (6.3-8.2) 04/19/18 06:27 Albumin 3.7 g/dL (3.9-5) L 04/19/18 06:27 Albumin/Globulin Ratio 1.0 % 04/19/18 06:27 Blood Type B POSITIVE 04/19/18 06:27 Antibody Screen Negative 04/19/18 06:27
--- NOTE | 2018-04-22 15:55 | Progress Note ---
Assessment and Plan post op day 2 doing ok continue PT and observation Subjective Date of service: 04/22/18 Interval history: sitting up in chair with family members present, c/o left thigh pain Objective Vital signs: Vital Signs - 12hr 04/22/18 04/22/18 04/22/18 06:58 07:43 09:12 Temperature 98.4 F Pulse Rate 90 Respiratory 18 18 Rate Blood Pressure 151/69 O2 Sat by Pulse 91 100 Oximetry 04/22/18 04/22/18 09:44 11:10 Temperature 98.1 F Pulse Rate 89 Respiratory 18 Rate Blood Pressure 151/69 132/67 O2 Sat by Pulse 94 Oximetry Narrative Exam: left thigh/knee - incision healing well, no drainage or erthema noted - Labs CBC & BMP: 04/22/18 08:59 04/21/18 06:45 Labs: Abnormal lab results 04/22/18 Range/Units 08:59 Hgb 8.9 L (10.1-14.3) gm/dl Hct 25.9 L (30.3-42.9) %
[2018-04-22] MEDS: ROXICODONE PO PRN (18:39)
[2018-04-22] MEDS ORDERED: APRESOLINE IV ONE (21:45)
[2018-04-22] MEDS: ZOFRAN IV PRN (23:11)
[2018-04-23] MEDS: ROXICODONE PO PRN ×2 (02:01→08:24)
[2018-04-23] MEDS: TORADOL IV PRN ×2 (05:39→12:23)
[2018-04-23 05:46] LABS: Hematocrit 26.6 % (30.3-42.9); Hemoglobin 8.9 gm/dl (10.1-14.3); Mean Corpuscular HGB Conc 33 % (30-34); Mean Corpuscular Volume 91 fl (79-97); Platelet Count 220 K/mm3 (140-440); Red Blood Count 2.94 M/mm3 (3.65-5.03); Red Cell Distribution Width 14.1 % (13.2-15.2)
[2018-04-23] MEDS: LOVENOX SUB-Q SCH ×2 (08:24→10:00)
[2018-04-23] MEDS: ASPIRIN PO SCH ×2 (08:24→10:00)
--- NOTE | 2018-04-23 10:25 | Discharge Summary ---
Providers - Providers Date of Admission: 04/19/18 07:57 Attending physician: ANGEL WOODWARD MD 04/19/18 07:57 Consult to Physician [CONS] Urgent Comment: Dr. Pederson notified @ 07:30- [facility] Consulting Provider: JOSE PEDERSON Physician Instructions: Reason For Exam: oblique displaced left femur fracture 04/19/18 08:48 Occupational Therapy Evaluate and Treat [CONS] Routine Comment: Reason For Exam: HIP FRACTURE Physical Therapy Evaluation and Treat [CONS] Routine Comment: Reason For Exam: HIP FRACTURE 04/20/18 17:17 Physical Therapy Evaluation and Treat [CONS] Routine Comment: Reason For Exam: post op evaluation Weight bearing status?: Full wt bearing Assistive devices?: Yes If so list: Walker 04/22/18 14:21 Consult to Case Management [CONS] Routine Services Needed at Discharge: Other Additional Physician Instructions: Inpatient Rehab. Primary care physician: RELATIONSHIP ADVISOR Hospitalization Reason for admission: HIP FRACTURE Condition: Stable Hospital course: Patient is a 57-year-old female who presents to the ED following a mechanical fall while getting out of the bathroom. The patient reports that she slipped on the water on the bathroom floor and fell. She'll fortunately was unable to get up being morbidly obese and was on this she thickened left knee and thigh pain rated at 10 over 10 in severity with no aggravating or alleviating symptoms. She does have medical history significant for right hip and knee surgeries in the past, left wrist surgery. Total hysterectomy. Hypertension, morbid obesity for which she is on phentermine. 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 Arrival to the ER she has received multiple pain medications with very moderate relief. As of the chest pain nausea vomiting she denies any head trauma. She denies any loss of consciousness during this fall. Patient underwent a successful repair for the distal femur. 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 GENERAL: The patient appeared well nourished and normally developed. Vital signs as documented. Otherwise morbidly obese HEAD: No signs of head trauma. EYES: Pupils are equal. Extraocular motions intact. EARS: Hearing grossly intact. MOUTH: Oropharynx is normal. NECK: No adenopathy, no JVD. CHEST: Chest with clear breath sounds bilaterally. No wheezes, rales, or rhonchi. CARDIAC: Regular rate and rhythm. S1 and S2, without murmurs, gallops, or rubs. VASCULAR: No Edema. Peripheral pulses normal and equal in all extremities. ABDOMEN: Soft, without detectable tenderness. No sign of distention. No rebound or guarding, and no masses palpated. Bowel Sounds normal. MUSCULOSKELETAL: Limited range of motion left lower ext. Surgical site clean and dry. . Extremities without clubbing, cyanosis or edema. NEUROLOGIC EXAM: Alert and oriented x 3. No focal sensory or strength deficits. Speech normal. Follows commands. PSYCHIATRIC: Mood normal. SKIN: No rash or lesions. Except for surgical well-healed incisions right knee right hip left wrist - Constitutional Vitals: Temp Pulse Resp BP Pulse Ox 98.6 F 82 20 134/62 97 04/23/18 07:18 04/23/18 07:18 04/23/18 07:18 04/23/18 07:18 04/23/18 08:47 Plan Activity: advance as tolerated, fall precautions Diet: low fat Special Instructions: record daily weights, record daily BP diary Follow up with: DIANE WOOD MD [Primary Care Provider] - 3-5 Days JOSE PEDERSON MD [Staff Physician] - 7 Days Prescriptions: Aspirin [Aspirin TAB] 325 mg PO QDAY #30 tablet ISOSORBIDE MONOnitrate [Imdur ER] 30 mg PO QDAY #30 tablet oxyCODONE [Roxicodone TAB] 10 mg PO Q6H PRN #14 tablet PRN Reason: Pain, Moderate (4-6)
[2018-04-23 11:33] VITALS: BP 133/46
== END 2018-04-23 12:56 | DRG 480 ==
LOC: ED 02:28 → 3B-SURG 07:57
PROVIDERS: ADMIT Internal Medicine; ATTEND Internal Medicine
PROC: 0QSC36Z Reposition Left Lower Femur with Intramedullary Internal Fixation Device, Percutaneous Approach (ICD-10-PCS; principal; 2018-04-20)
DX: S72.332A Displaced oblique fracture of shaft of left femur, initial encounter for closed fracture (principal); N17.0 Acute kidney failure with tubular necrosis; Z68.43 Body mass index [BMI] 50.0-59.9, adult; E66.01 Morbid (severe) obesity due to excess calories; I10 Essential (primary) hypertension; Z96.651 Presence of right artificial knee joint; G89.4 Chronic pain syndrome; Y93.01 Activity, walking, marching and hiking; W01.0XXA Fall on same level from slipping, tripping and stumbling without subsequent striking against object, initial encounter; Z96.641 Presence of right artificial hip joint; Z88.6 Allergy status to analgesic agent; Z90.710 Acquired absence of both cervix and uterus; Z88.1 Allergy status to other antibiotic agents; Y92.091 Bathroom in other non-institutional residence as the place of occurrence of the external cause; Y99.8 Other external cause status
CPT/HCPCS: 36415; 71045; 72170; 80048; 80076; 82565; 83735; 83880; 84484; 84520; 85014; 85018; 85025; 85027; 85610; 85730; 86850; 86900; 86901; 93005; 93010; 94760; 96361; 96374; 96375; G0378; C1713; C1769; J0360; J0690; J1170; J1650; J1885; J2175; J2250; J2405; J2704; J3010; J7030; L8699

== ENCOUNTER 2018-06-17 09:41 | Outpatient (CLI) | payer OTHER ==
--- NOTE | 2018-06-17 12:09 | XRay Report ---
LEFT FEMUR: HISTORY: Fracture The oblique internally fixated fracture of the distal femoral shaft appears unchanged in position or alignment since 04/20/18. There is a small amount of callus formation forming medial to the fracture site. Fracture lines remain evident. IMPRESSION: Healing left femur fracture.
== END 2018-06-17 09:42 | disposition home or self-care (01) ==
LOC: XRAY 09:41
PROVIDERS: ATTEND Orthopaedic Surgery
DX: S72.92XA Unspecified fracture of left femur, initial encounter for closed fracture (principal); I10 Essential (primary) hypertension; E66.9 Obesity, unspecified; M19.90 Unspecified osteoarthritis, unspecified site; X58.XXXA Exposure to other specified factors, initial encounter; Y93.89 Activity, other specified; Y92.89 Other specified places as the place of occurrence of the external cause; Y99.8 Other external cause status

== ENCOUNTER 2018-08-26 10:14 | Outpatient (CLI) | payer OTHER ==
--- NOTE | 2018-08-26 12:02 | XRay Report ---
LEFT FEMUR, 2 VIEWS History: Unspecified fracture of left femur. Findings: The internally fixated oblique fracture of the distal femoral shaft is unchanged in position and alignment 06/17/18. There is minimal increase in callus formation along the fracture medially and posteriorly. Fracture lines remain evident particularly laterally. No evidence for new fracture or bony destruction. The soft tissues are unremarkable. Impression: Minimal signs of healing of the distal left femur fracture is demonstrated since 06/17/18.
== END 2018-08-26 10:15 | disposition home or self-care (01) ==
LOC: XRAY 10:14
PROVIDERS: ATTEND Orthopaedic Surgery
DX: S72.492A Other fracture of lower end of left femur, initial encounter for closed fracture (principal); I10 Essential (primary) hypertension; E66.9 Obesity, unspecified; X58.XXXA Exposure to other specified factors, initial encounter; Y93.89 Activity, other specified; Y92.89 Other specified places as the place of occurrence of the external cause; Y99.8 Other external cause status

== ENCOUNTER 2018-10-26 14:36 | Outpatient (CLI) | payer OTHER ==
--- NOTE | 2018-10-26 16:24 | XRay Report ---
LEFT FEMUR 2 VIEWS HISTORY: Fracture. COMPARISON: 08/26/2018 TECHNIQUE: 2 views of the left femur were obtained. FINDINGS: Bones: No acute fracture or dislocation. An intramedullary delmy traverses a right fracture of the dis ebenezer femur at the junction of middle and distal thirds. Alignment is unchanged. Slightly increased eamon chance at the fracture site. Joint spaces: Maintained. Soft tissues: No significant abnormality. Additional findings: None. IMPRESSION: 1. Healing fracture of the distal femur with increased callus and otherwise no change. Signer Name: Nehemias Brush MD Signed: 10/26/2018 4:20 PM Workstation Name: [id number]
== END 2018-10-26 14:37 | disposition home or self-care (01) ==
LOC: XRAY 14:36
PROVIDERS: ATTEND Orthopaedic Surgery
DX: S72.402D Unspecified fracture of lower end of left femur, subsequent encounter for closed fracture with routine healing (principal); I10 Essential (primary) hypertension; E66.9 Obesity, unspecified; X58.XXXD Exposure to other specified factors, subsequent encounter

== ENCOUNTER 2019-01-10 11:43 | Outpatient (CLI) | payer OTHER ==
--- NOTE | 2019-01-10 13:51 | XRay Report ---
LEFT FEMUR HISTORY: Fracture. COMPARISON: None. TECHNIQUE: 2 views of the left femur were obtained. FINDINGS: Bones: No acute fracture or dislocation. An intramedullary delmy traverses an oblique fracture of the distal femur at junction of middle and distal thirds. Slight anterior displacement of the major dista l fracture fragment is unchanged. Callus at the fracture site is unchanged. Stable appearance of the hardware. A minimally displaced fracture of the proximal fibula with callus unchanged since the last exam. Joint spaces: Moderate osteoarthritis of the knee involving medial and lateral joints. Soft tissues: No significant abnormality. Additional findings: None. IMPRESSION: IMPRESSION: 1. Fractures of the distal femur and proximal fibula are unchanged. Signer Name: Nehemias Brush MD Signed: 01/10/2019 1:47 PM Workstation Name: [id number]
== END 2019-01-10 11:44 | disposition home or self-care (01) ==
LOC: XRAY 11:43
PROVIDERS: ATTEND Orthopaedic Surgery
DX: S72.402A Unspecified fracture of lower end of left femur, initial encounter for closed fracture (principal); X58.XXXA Exposure to other specified factors, initial encounter; Y93.89 Activity, other specified; Y92.89 Other specified places as the place of occurrence of the external cause; Y99.8 Other external cause status

== ENCOUNTER 2019-05-19 08:25 | Outpatient (CLI) | payer OTHER ==
--- NOTE | 2019-05-19 10:21 | XRay Report ---
RIGHT FOREARM 2 VIEWS INDICATION: PAIN IN RT ARM. COMPARISON: None. IMPRESSION: There is been previous internal fixation of both the proximal radius and mid ulnar shaft s. Alignment is anatomic. No evidence for acute fracture or bony destruction. Normal articulation at the wrist and elbow. The soft tissues are unremarkable. No acute process is noted. Signer Name: Stanley Malone Jr, MD Signed: 05/19/2019 10:16 AM Workstation Name: [id number]
--- NOTE | 2019-05-19 10:22 | XRay Report ---
LEFT FEMUR HISTORY: Follow-up fracture. COMPARISON: None. TECHNIQUE: 2 views of the left femur obtained. FINDINGS: Bones: An intramedullary delmy traverses an oblique fracture of the distal femur at the junction of mid dle and distal thirds. There appears to be increased callus and greater density of the callus on the AP view. The lateral view demonstrates minimal bridging callus at the anterior aspect of the fractur e. No change in position of fracture fragments. Joint spaces: Visualized portions maintained. Soft tissues: Unremarkable. Additional findings: None. IMPRESSION: 1. Healing fracture of the distal femur status post ORIF. 2. Slightly increased callus compared to the last exam. Signer Name: Nehemias Brush MD Signed: 05/19/2019 10:18 AM Workstation Name: [id number]
--- NOTE | 2019-05-19 10:26 | XRay Report ---
RIGHT SHOULDER 3 VIEWS INDICATION: PAIN IN RT SHOULDER. COMPARISON: Chest radiograph one year ago. FINDINGS: There is an age-indeterminate fracture through the greater tuberosity of the proximal right humerus w ith several punctate fracture fragments superior to the humeral head. This is new since the prior exa m but may be subacute. IMPRESSION: 1. Age-indeterminate greater tuberosity fracture with small fracture fragments superior joint space. This is new since the chest radiograph from one year ago. Signer Name: Oj Melo MD Signed: 05/19/2019 10:21 AM Workstation Name: [id number]
== END 2019-05-19 08:26 | disposition home or self-care (01) ==
LOC: XRAY 08:25
PROVIDERS: ATTEND Orthopaedic Surgery
DX: S72.402D Unspecified fracture of lower end of left femur, subsequent encounter for closed fracture with routine healing (principal); X58.XXXD Exposure to other specified factors, subsequent encounter; M24.641 Ankylosis, right hand; M25.775 Osteophyte, left foot